=== PATIENT | female | born 1955 | race American Indian/Alaskan Native ===

== ENCOUNTER 2020-01-12 11:41 | Day surgery (SDC) | payer OTHER ==
--- NOTE | 2020-01-12 08:08 | Short Stay Summary ---
Short Stay Documentation Date of service: 01/12/20 - History H&P: obtained from office - Allergies and Medications Current Medications: Allergies indomethacin [From Indocin] Allergy (Verified 07/25/16 20:28) Rash indomethacin sodium [From Indocin] Allergy (Verified 07/25/16 20:28) Rash Home Medications Medication Instructions Recorded Confirmed Last Taken Type Butalb/Acetamin/Caff 50-325-40 1 each PO Q4H PRN #12 tablet 09/28/13 Unknown Rx [Fioricet] Promethazine [Phenergan] 25 mg PO Q6H PRN #15 tablet 09/28/13 Unknown Rx levoFLOXacin [Levaquin] 750 mg PO QDAY #7 tablet 03/26/14 Unknown Rx metroNIDAZOLE [Flagyl] 500 mg PO Q6H #28 tablet 03/26/14 Unknown Rx EPINEPHrine (NF) [Epipen (Nf)] 0 mg IM ONCE #1 syringekit 08/18/14 Unknown Rx Famotidine [Pepcid] 20 mg PO BID #30 tablet 08/18/14 Unknown Rx Meclizine [Antivert] 25 mg PO TID PRN #18 tablet 08/18/14 Unknown Rx Oxycodone HCl/Acetaminophen 1 each PO Q6HR PRN #20 tablet 08/18/14 Unknown Rx [Percocet 10-325 mg] diphenhydrAMINE [Benadryl] 25 mg PO Q6HR PRN #20 capsule 08/18/14 Unknown Rx predniSONE [Deltasone] 50 mg PO QDAY #4 tab 08/18/14 Unknown Rx Cyclobenzaprine HCl [Flexeril 5 MG 5 mg PO TID #20 tab 07/26/16 Unknown Rx TAB] HYDROcodone/APAP 5-325 [Edelstein 1 - 2 each PO Q4-6H PRN #20 tablet 09/10/18 Unknown Rx 5-325 mg TAB] Ondansetron [Zofran Odt] 4 mg PO Q8HR PRN #20 tab.rapdis 09/10/18 Unknown Rx - Physical exam General appearance: no acute distress HEENT: Atraumatic Lungs: Normal air movement Neurological: Normal speech - Brief post op/procedure progress note Date of procedure: 01/12/20 (dicctation:[id number]) Pre-op diagnosis: left 4th digit soft tissue mass Post-op diagnosis: same Procedure: excision of left 4th digit soft tissue mass digital nerve block IVF 300cc EBL min Cuff time 14min Anesthesia: MAC Findings: [id number] firm mass in the subcutaneous tissue Surgeon: ULI GORDON Estimated blood loss: minimal Pathology: list ([id number] firm mass) Specimen disposition: to lab Condition: stable - Hospital course Hospital course: uneventful - Disposition Condition at discharge: Stable Disposition: DC- TO HOME OR SELFCARE Short Stay Discharge Plan Activity: advance as tolerated Diet: regular Wound: open to air, keep clean and dry, remove dressing (in 48 hours) Special Instructions: no heavy lifting Additional Instructions: Post Operative Instructions Activity: no heavy lifting for next 1 week. May shower in 2 days. Pat dry the wound or wounds. Keep incision sites clean and dry After surgery, start with a light diet. Consider starting with liquids. If you do well, you can advance to a regular diet as you feel comfortable. Apply an ice pack to the wound or wounds for 10-20 minutes at a time. Do this at least 4-5 times a day. You can do it more if he would like. Pain Medication Schedule for the first 2 days after surgery: Gabapentin 300mg twice a day Tylenol 500mg four times a day (every 6 hours) After the first 2 days, then take Tylenol as needed for pain. Take 500 mg of Tylenol every 6 hours as needed. You should alternate these 2 medicines. Make sure you take the ibuprofen with food. It is very important that you use the prescription narcotic pain medicine (tylenol with codeine) only for very severe pain. Do not take the narcotic medicine before you try using all the medications listed above. We will call you in a couple of days to see how youre doing. If you have any questions or concerns, always feel free to call the clinic ([phone]) at any time. Follow up with: CLIVE GUTIÉRREZ MD [Primary Care Provider] - 7 Days ULI GORDON MD [Staff Physician] - 14 Days Forms: Outpatient Surgery DC Inst. Prescriptions: RX: Acetaminophen [Acetaminophen TAB] 500 mg PO Q6H PRN #30 tablet PRN Reason: Pain, Moderate (4-6) RX: Gabapentin 300 mg PO BID #4 cap Acetaminophen/Codeine [Tylenol /Codeine # 3 tab] 1 tab PO Q6H PRN #15 tab PRN Reason: Pain , Severe (7-10)
[~2020-01-12 11:41] MED LIST: ACETAMINOPHEN 500 MG TAB PO ONE; GABAPENTIN 300 MG CAP PO SCH; LACTATED RINGERS 1,000 ML IV SCH; SODIUM CHLORIDE 0.9% 1000 ML 1,000 ML IV SCH; ceFAZolin/Water 2 GM/20 ML 2 GM/20 ML SYRINGE IV NR
[2020-01-12] MEDS ORDERED: MIDAZOLAM 2 MG/2 ML INJ IV ONE (13:21)
[2020-01-12] MEDS ORDERED: ceFAZolin/STERILE WATER 2 GM/20 ML SYRINGE IV NR (13:22)
[2020-01-12] MEDS ORDERED: fentaNYL 100 MCG/2 ML INJ IV PRN (13:32)
--- NOTE | 2020-01-12 13:32 | Anesthesia Day of Surgery ---
Anesthesia Day of Surgery - Day of Surgery Patient Examined: Yes Patient H&P Reviewed: Yes Patient is NPO: Yes
--- NOTE | 2020-01-12 13:32 | Anesthesia Consultation ---
Anesthesia Consult and Med Hx Date of service: 01/12/20 - Airway Anesthetic Teeth Evaluation: Poor ROM Head & Neck: Adequate Mental/Hyoid Distance: Adequate Mallampati Class: Class II Intubation Access Assessment: Probably Good - Pulmonary Exam CTA: Yes - Cardiac Exam Cardiac Exam: RRR - Pre-Operative Health Status ASA Pre-Surgery Classification: ASA3 Proposed Anesthetic Plan: MAC - Pulmonary Hx Smoking: No Hx Asthma: Yes (seasonal; last inhaler use 2wks ago) Hx Respiratory Symptoms: No - Cardiovascular System Hx Hypertension: Yes Hx Heart Attack/AMI: No Hx Percutaneous Transluminal Coronary Angioplasty (PTCA): No - Central Nervous System CVA: No - Gastrointestinal Hx Gastroesophageal Reflux Disease: No - Endocrine Hx Renal Disease: No Hx Liver Disease: No Hx Insulin Dependent Diabetes: No Hx Non-Insulin Dependent Diabetes: No Hx Thyroid Disease: No - Other Systems Hx Obesity: Yes (BMI 42) - Additional Comments Anesthesia Medical History Comments: Hx PONV
[2020-01-12] MEDS ORDERED: SCOPOLAMINE TRANSDERMAL PATCH 72 HR TD NR (14:00)
[2020-01-12] MEDS ORDERED: ACETAMINOPHEN 500 MG TAB PO NR (14:00)
[2020-01-12] MEDS ORDERED: BUPIVACAINE/PF (0.5%) 5 MG/1 ML 30 ML VIAL INFILTRATI ONE ×2 (14:22→15:02)
[2020-01-12] MEDS ORDERED: LIDOCAINE (1%) 10 MG/1 ML VIAL 20 ML MDV ONE (14:22)
[2020-01-12] MEDS ORDERED: propofoL 200 MG/20 ML VIAL IV ONE (14:36)
[2020-01-12] MEDS ORDERED: SODIUM CHLORIDE 0.9% IRR 1,500 ML BOTTLE IR ONE (15:02)
[2020-01-12] MEDS ORDERED: LIDOCAINE (1%) 10 MG/1 ML VIAL 20 ML MDV INFILTRATI ONE (15:02)
[2020-01-12] MEDS ORDERED: NEOMY 3.5 MG/BACIT 400 UNITS/POLY B 5000 UNITS/GM OINT PACKET TP ONE (15:34)
--- NOTE | 2020-01-12 16:26 | Post Anesthesia Evaluation ---
- Post Anesthesia Evaluation Patient Participated: Yes Airway Patent: Yes Stable Respiratory Function: Yes Nausea/Vomiting: No Temp > 96.8F: Yes Pain Manageable: Yes Adequeate Hydration: Yes Anesthesia Complications: No
[2020-01-12 17:14] VITALS: BP 145/94
--- NOTE | 2020-01-12 21:44 | Operative Report ---
PREOPERATIVE DIAGNOSIS: Left fourth digit soft tissue mass. POSTOPERATIVE DIAGNOSIS: Left fourth digit soft tissue mass. PROCEDURE: 1. Digital nerve block. 2. Excision of soft tissue mass from left fourth digit on the hand. ATTENDING PHYSICIAN: Nii Ramos MD ANESTHESIA: Local MAC. ESTIMATED BLOOD LOSS: Minimal. FLUIDS: 300 mL. FINDINGS: A 4 x 6 x 9 mm firm mass in the subcutaneous tissue. SPECIMENS: Same. DRAINS: None. COMPLICATIONS: None. DISPOSITION: Stable, transferred to Recovery Room. INDICATIONS: This is a 64-year-old female who reports that over the years, she has developed a progressive swelling in the left hand fourth digit that had become more painful over time. When she uses her hand, patient was found to have a firm mass that felt to be a cyst-like in nature. The patient is assessed to be in need for excision. Procedure, risks, benefits were explained to the patient. Risks included but were not limited to infection, bleeding, pain, injury to surrounding structures, possible need for further procedures in the future. The patient understood and consented. OPERATIVE NOTE: The patient was brought to the operating room and placed on the table in supine position. After adequate sedation was established, the patient was prepped and draped in usual sterile fashion. Antibiotics have been given. SCDs were in place. Blood pressure cuff was placed to be used during the procedure. After time-out was performed, Esmarch bandage was used to compress the left hand and forearm, then blood pressure cuff was put up, blood pressure cuff was up for a total of minutes. Thereafter, Esmarch bandage was removed. A curvilinear incision in an S-shaped fashion was made around the mass just prior to that a digital nerve block had been done with a 50:50 mix of 0.5% Marcaine and 1% lidocaine, neither of which had epinephrine. The dissection was carried down to just under the skin level to the mass. Mass was dissected from the surrounding tissue, it was densely adherent to the skin, such that there were changes in the skin in terms of thickening almost callus like changes. There was a small area where it was difficult to separate from the skin, such that a small opening was made in the skin approximately 1-2 mm, mass was removed intact. The underlying tissue appeared relatively normal. There was no involvement of deeper structures such as tendon or bone. There is no blood vessel involvement. Specimens passed off table in sterile fashion. We assessed the wound for any bleeding. After the cuff pressure was dropped, I injected additional local into that area. Small areas of bleeding primarily at the skin were controlled with electrocautery. Using 5-0 Ethilon suture, I closed the skin with interrupted sutures. Skin was cleaned and dried. Bacitracin ointment was placed along with wrapping the area with petroleum gauze and then we wrapped it with a 2 x 2 gauze applying slight bit of pressure to that area. Skin then cleaned and dried. The patient tolerated the procedure well. There were no complications. All counts were correct at the end of the case. JOB# [id number] MICHAEL/KENYON
== END 2020-01-12 11:42 | disposition home or self-care (01) ==
LOC: OR 11:41
PROVIDERS: ATTEND Surgery
DX: R22.32 Localized swelling, mass and lump, left upper limb (principal); G43.909 Migraine, unspecified, not intractable, without status migrainosus; I10 Essential (primary) hypertension; J45.909 Unspecified asthma, uncomplicated; E66.9 Obesity, unspecified; M19.90 Unspecified osteoarthritis, unspecified site; D64.9 Anemia, unspecified; Z98.890 Other specified postprocedural states; Z91.040 Latex allergy status; Z79.899 Other long term (current) drug therapy; Z90.49 Acquired absence of other specified parts of digestive tract; Z68.42 Body mass index [BMI] 45.0-49.9, adult; Z90.710 Acquired absence of both cervix and uterus; Z88.8 Allergy status to other drugs, medicaments and biological substances
CPT/HCPCS: 11426; 36415; 84132; 88305; 88341; J0690; J2250; J2704; J7120; 88307; 88342; A6250